=== PATIENT | male | born 1995 | race African-American/Black ===

== ENCOUNTER 2018-10-22 16:28 | Emergency (ER) | payer MEDICAID ==
[~2018-10-22] VITALS: Ht 180.3 cm; Wt 70.0 kg
[2018-10-22] MEDS ORDERED: ACETAMINOPHEN 325MG TABLET PO ONE (19:00)
[2018-10-22 20:05] VITALS: BP 123/76
== END 2018-10-22 20:06 | disposition home or self-care (01) ==
LOC: EDSEX 16:28 → ER 16:28
DX: S62.304A Unspecified fracture of fourth metacarpal bone, right hand, initial encounter for closed fracture (principal); M79.641 Pain in right hand; F17.210 Nicotine dependence, cigarettes, uncomplicated; X83.8XXA Intentional self-harm by other specified means, initial encounter; Y93.89 Activity, other specified; Y92.9 Unspecified place or not applicable
CPT/HCPCS: 29125; 73130; 99283

== ENCOUNTER 2019-11-24 09:57 | Emergency (ER) | payer MEDICAID ==
[~2019-11-24] VITALS: Ht 180.3 cm; Wt 82.0 kg
[2019-11-24] MEDS ORDERED: AZITHROMYCIN 500 MG TABLET PO ONE (10:30)
[2019-11-24] MEDS ORDERED: CEFTRIAXONE SODIUM 250 MG/VIAL IM ONE (10:30)
[2019-11-24 10:59] LABS: CLARITY URINE CLEAR (CLEAR); COLOR URINE YELLOW (YELLOW); KETONES URINE NEGATIVE (NEGATIVE); LEUKOCYTE ESTERASE URINE 2+ (NEGATIVE); NITRITE URINE NEGATIVE (NEGATIVE); OCCULT BLOOD URINE TRACE (NEGATIVE); PROTEIN URINE TRACE (NEGATIVE); SPECIFIC GRAVITY URINE 1.025 (1.005-1.030)
[2019-11-24 11:56] VITALS: BP 118/90
[2019-11-28 04:09] LABS: NEISSERIA GONORRHOEAE NAA Positive (Negative)
== END 2019-11-24 11:57 | disposition home or self-care (01) ==
LOC: ER 09:57
DX: A54.01 Gonococcal cystitis and urethritis, unspecified (principal); N39.0 Urinary tract infection, site not specified
CPT/HCPCS: 81003; 87077; 87086; 87491; 87591; 96372; 99283; J0696